=== PATIENT | male | born 1970 | race Caucasian/White ===

== ENCOUNTER 2019-11-08 21:27 | Inpatient (IN) | payer OTHER ==
[~2019-11-08] VITALS: Ht 182.9 cm; Wt 69.9 kg
[2019-11-08 23:18] LABS: BASOPHIL % 0.3 % (0-2); PLATELET COUNT 186 x10^3mcL (130-400); RED CELL DISTRIBUTION WIDTH 15.1 % (11.5-14.5)
[2019-11-08 23:39] LABS: CALCIUM 8.9 mg/dL (8.5-10.1); CARBON DIOXIDE 32.2 mmol/L (21-32); CHLORIDE SERUM 107 mmol/L (98-107); CREATININE SERUM 1.2 mg/dL (0.7-1.3); GFR1 > 60 mL/min; GLUCOSE SERUM 118 mg/dL (74-106); POTASSIUM SERUM 3.9 mmol/L (3.5-5.1); SODIUM SERUM 145 mmol/L (136-145)
[2019-11-08 23:43] LABS: ALBUMIN 3.7 g/dL (3.4-5.0); ALKALINE PHOSPHATASE 50 U/L (46-116); ALT/SGPT 32 U/L (16-63); AST/SGOT 27 U/L (15-37); BILIRUBIN TOTAL 0.9 mg/dL (0.20-1.00)
[2019-11-09 00:36] LABS: UA SPECIFIC GRAVITY 1.025 (1.005-1.035); microscopic required? YES; urine erythrocyte NEGATIVE (NEGATIVE)
[2019-11-09 03:04] LABS: FREE T4 0.99 ng/dL (0.76-1.46); FREE THYROXINE INDEX 1.5 ug/dL (1.4-4.5)
[2019-11-09] MEDS ORDERED: ULTRAM50 MG PO (03:33)
[2019-11-09] MEDS ORDERED: CLINDAMYCIN150 M1 PO (03:35)
[2019-11-09] MEDS ORDERED: ERIVEDGE150 MG PO (03:36)
[2019-11-09] MEDS ORDERED: DOXYCYCLINE HY100 MG (03:38)
[2019-11-09] MEDS ORDERED: RAYOS5 MG PO (03:40)
[2019-11-09] MEDS ORDERED: PERCOCET1 TAB (03:42)
[2019-11-09] MEDS ORDERED: TESTOSTERON200 MG/M1 (03:44)
[2019-11-09] MEDS ORDERED: VALACYCLOVIR H500 M1 PO (03:45)
[2019-11-09] MEDS ORDERED: PROTONIX40 MG/Pac1 PO (03:46)
[2019-11-09] MEDS ORDERED: ASPIRIN CHILDRE81 MG PO (03:47)
[2019-11-09] MEDS ORDERED: BANOPHEN50 MG PO (03:48)
[2019-11-09] MEDS ORDERED: NORV PO (03:49)
[2019-11-09] MEDS ORDERED: PLAQUENIL200 MG PO (03:50)
[2019-11-09] MEDS ORDERED: EMTRIVA200 M1 PO (03:53)
[2019-11-09] MEDS ORDERED: PREZISTA600 M1 (03:56)
[2019-11-09] MEDS ORDERED: ISENTRESS400 MG PO (03:57)
[2019-11-09] MEDS ORDERED: V12I10 IJ (04:00)
[2019-11-09] MEDS ORDERED: CALTRATE PLUS1 TAB PO (04:02)
[2019-11-09] MEDS ORDERED: ZYRTEC ALLERGY10 MG PO (04:03)
[2019-11-09] MEDS ORDERED: DAPSONE100 MG PO (04:05)
[2019-11-09] MEDS ORDERED: VITAMIN B-650 M2 PO (04:05)
[2019-11-09] MEDS ORDERED: ZOF4 PO (04:07)
[2019-11-09 04:52] LABS: T3 TOTAL 1.26 ng/mL
[2019-11-09 05:21] VITALS: BP 107/72
[2019-11-09 06:46] LABS: BASOPHIL % 0.4 % (0-2); PLATELET COUNT 174 x10^3mcL (130-400)
[2019-11-09 06:51] LABS: RED CELL DISTRIBUTION WIDTH 15.2 % (11.5-14.5)
[2019-11-09 06:53] LABS: CALCIUM 8.2 mg/dL (8.5-10.1); CARBON DIOXIDE 28.4 mmol/L (21-32); CHLORIDE SERUM 110 mmol/L (98-107); GFR1 > 60 mL/min; GLUCOSE SERUM 96 mg/dL (74-106); POTASSIUM SERUM 3.8 mmol/L (3.5-5.1); SODIUM SERUM 142 mmol/L (136-145)
[2019-11-09 08:45] VITALS: BP 109/69
[2019-11-09 12:34] VITALS: BP 109/69
[2019-11-09 12:45] VITALS: BP 109/69
[2019-11-09 14:27] VITALS: BP 116/66
== END 2019-11-09 14:41 | disposition home or self-care (01) | DRG 392 ==
LOC: ED 21:27 → MU 11-09 01:35
PROVIDERS: Emergency Medicine; ADMIT Internal Medicine
DX: A08.4 Viral intestinal infection, unspecified (principal); C18.9 Malignant neoplasm of colon, unspecified; Z88.0 Allergy status to penicillin; Z88.8 Allergy status to other drugs, medicaments and biological substances; Z85.828 Personal history of other malignant neoplasm of skin
CPT/HCPCS: 83880; 84439; 87804; 90732; G0378; J2405; J2765; J7030; J7512; Q0092